=== PATIENT | female | born 1955 | race Caucasian/White ===

== ENCOUNTER 2021-08-13 08:48 | Outpatient (CLI) | payer MEDICARE, OTHER ==
[2021-08-11 09:16] LABS: ALBUMIN 3.9 G/DL (3.4-5.0); ANION GAP 9 (8-16); BLOOD UREA NITROGEN 17 MG/DL (7-18); BUN/CREATININE RATIO 26.6 (6.6-38.0); CALCIUM 8.8 MG/DL (8.5-10.1); CHLORIDE 106 MMOL/L (99-107); CREATININE 0.64 MG/DL (0.40-0.90); GLUCOSE 106 MG/DL (70-104); POTASSIUM 4.2 MMOL/L (3.5-5.1); SODIUM 141 MMOL/L (135-145); TOTAL CARBON DIOXIDE 26.3 MMOL/L (24-32); eGFR > 90 ML/MIN
[2021-08-13] MEDS ORDERED: iohexol 300mg/ml 100ml inj. ONE (09:01)
== END 2021-08-13 23:59 | disposition home or self-care (01) ==
LOC: RAD 08:48
PROVIDERS: ATTEND Family Medicine
DX: R10.9 Unspecified abdominal pain (principal); I25.10 Atherosclerotic heart disease of native coronary artery without angina pectoris; Z90.49 Acquired absence of other specified parts of digestive tract
CPT/HCPCS: 36415; 74178; 80048; J3490; Q9967